=== PATIENT | female | born 1950 | race Two or more races ===

== ENCOUNTER 2024-11-30 06:47 | Day surgery (SDC) | payer MEDICARE, SELFPAY ==
--- NOTE | 2024-11-28 10:59 | EKG_ITS ---
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 : 1950 Requested By: Augustus Chan Order Number: [id number] Reading MD: Augustus Chan Measurements Intervals Gilbert Rate: 126 P: UT: QRS: -1 QRSD: 78 T: 0 QT: 124 QTc: 180 Interpretive Statements ATRIAL FIBRILLATION WITH RAPID VENTRICULAR RESPONSE LOW QRS VOLTAGE IN PRECORDIAL LEADS [QRS DEFLECTION < 1.0 mV IN CHEST LEADS] MINIMAL ST DEPRESSION [0.025+ mV ST DEPRESSION] ABNORMAL RHYTHM ECG Compared to ECG 07/23/2023 14:36:00 Low QRS voltage now present ST (T wave) deviation now present Left-axis deviation no longer present T-wave abnormality no longer present /store/S0/[id number].pdf
[2024-11-28 11:27] LABS: Partial Thromboplastin Time 26.1 Seconds (22.0-36.0); Prothrombin Time 10.9 Seconds (9.0-12.2)
[2024-11-28 11:34] LABS: Anion Gap 9 (7-16); BUN/Creatinine Ratio 16 Ratio (12-20); Blood Urea Nitrogen 18 mg/dL (9-23); Calcium 9.6 mg/dL (8.3-10.6); Carbon Dioxide 32.5 mMol/L (20.0-31.0); Chloride 98 mMol/L (98-107); Creatinine (Component) 1.1 mg/dL (0.6-1.3); Glucose 89 mg/dL (74-106); Osmolality,Calculated 278 (275-295); Potassium 3.8 mMol/L (3.4-5.1); Sodium 139 mMol/L (136-145); eGFR 52 See Note
[2024-11-28 11:55] LABS: Basophils # (Auto) 0.1 Thou/mm3 (0.0-0.2); Basophils % (Auto) 1 % (0-2.5); Eosinophils # (Auto) 0.6 Thou/mm3 (0.0-0.5); Eosinophils % (Auto) 5 % (0-10); Hematocrit 43.7 % (36.0-46.0); Hemoglobin 14.7 g/dL (12.0-16.0); Immature Granulocytes % (Auto) 0 % (0-0); Immature Granulocytes Auto 0.04 Thou/mm3 (0.00-0.00); Lymphocytes # (Auto) 3.9 Thou/mm3 (1.0-4.8); Lymphocytes % (Auto) 32 % (10-50); Mean Corpuscular HGB Conc 33.6 g/dl (31.0-37.0); Mean Corpuscular Volume 89 fL (80-100); Monocytes # (Auto) 1.4 Thou/mm3 (0.0-0.8); Monocytes % (Auto) 11 % (0-12); Neutrophils # (Auto) 6.3 Thou/mm3 (1.8-7.7); Neutrophils % (Auto) 51 % (37-80); Nucleated Red Blood Cell % 0 /100 WBC (0); Platelet Count 287 Thou/mm3 (140-440); RDW Standard Deviation 40.9 fL (36.4-46.3); White Blood Count 12.3 Thou/mm3 (3.6-11.0)
[2024-11-28 15:46] VITALS: BMI 36.3
[2024-11-30] VITALS (23 sets, daily range): BP systolic 87–179; BP diastolic 66–124; PULSE 70–130; RESP 13–24; TEMP 36.1–36.6; O2SAT 93–99; BMI 36.2
[2024-11-30] MEDS: DILTIAZEM INJ 5 MG/ML VIAL 5 ML 20 MG IV (08:04)
[2024-11-30] MEDS: FUROSEMIDE INJ 10 MG/ML 4ML VIAL 20 MG IVP (10:28)
[2024-11-30] MEDS: LABETALOL INJ 5 MG/ML VIAL 20 ML 20 MG IVP (10:48)
--- NOTE | 2024-11-30 11:44 | PC.NURSE ---
1015 patient is awake, alert, oriented x3, s/p LHC by Dr. Chan, TR band present to right wrist, small amount of dry blood noted, no active bleeding or hematoma noted. Patient has expiratory wheezing. Report received from Mykel JAMA, patient to recovery for 4 hours. Patient may resume eliquis tomorrow. May resume aspirin and start new medication plavix. 1028 New order received for lasix 20mg IVP, medication given. 1048 Blood pressure remains high, HR 120, labetalol 20mg given IVP. 1100 patient ate sandwitch and juice, no nausea or vomiting
--- NOTE | 2024-11-30 12:15 | PD.CARDCATH ---
Cardiac Cath Procedure Procedure Name Date of procedure: 11/30/2024 PROCEDURE PERFORMED: 1. Successful complex PCI performed of the mid LAD with 2.5 x 30 mm [place] stent and post dilated proximally with 3.0x15 mm NC balloon 2. Left heart cardiac catheterization including right, left coronary angiograms and left ventriculogram 2. Ultrasound-guided access of the right radial artery 3. Conscious sedation for 30 minutes SANDBLASTER STONE: Augustus Chan MD Procedure Narrative HISTORY AND INDICATIONS: 74-year-old female with a past medical history of paroxysmal atrial fibrillation, chronic systolic and diastolic congestive heart failure (EF 45% 2021, 50% 2023, 60-65% 2024), COPD, prediabetes, essential hypertension, obesity, osteoarthritis, asthma, neuropathy peripheral. Patient was initially seen in [facility] for shortness of breath, she followed up as outpatient and ischemic work up was started. NST showed areas of decreased uptake in the apex, apical anterior, apical inferior and apical lateral segments that improves with rest indicating stress induced ischemia. EF 63%. TID 1.33. Patient was brought in for an elective cardiac catheterization. All the risk benefits and alternatives of left heart cardiac attrition were explained in detail including the risk of bleeding, heart attack, stroke and in detail. Patient agreeable for the procedure and provided the consent. H&P updated. DESCRIPTION OF PROCEDURE: The patient was brought to the cardiac catheterization lab analysis the precautions were followed. Patient was given 1 Mg of Versed and 50 mcg of fentanyl for moderate conscious sedation. 2 mL of lidocaine was given in the right wrist. The right radial artery was accessed via the ultrasound guidance as well as micropuncture technique. A 6 Portuguese glide sheath was introduced. We then used a 6 Portuguese TIG 4 catheter to perform the left coronary angiogram as well as a left ventriculogram which showed the following findings. A JR 3.5 SH sidehole catheter was used for right coronary angiogram as well as performing the PCI of the mid LAD. 1. Right dominant circulation 2. Left main artery is a large artery without any Significant disease 2. LAD arises artery with severe 80% stenosis in a long segment of the mid segment. Small diagonals with 40% stenosis in diagonal 1. The rest without any significant disease. 3. LCx is a large size artery with moderate disease in the mid segment. OM1 and OM 2 are medium sized arteries without any significant disease. 4. RCA is large size artery with moderate 50% stenosis of the mid segment. 5. LVEF is normal at 60 to 65% with normal LVEDP. There was no significant transvalvular aortic gradient INTERVENTION: A 6 Portuguese JL 3.5 SH guide was used to engage the left coronary artery. Patient was given weight-based heparin and ACT was greater than 250 although the procedure. Run-through guidewire was used to cross the lesion in the mid LAD without any complications. We then use a second run-through wire as sentinel wire to adjust the position of the balloon or the stent of the long mid RCA lesion. A 2.5 x 20 mm semicomplaint balloon was used for predilatation and was predilated multiple times at 6, 8 and 10 and 12 maricel respectively. We then used 2.5 x 30 mm [place] stent and carefully positioned in the mid segment and multiple images were taken to make sure that mid segment was covered with couple of cells extending into the aorta. The [place] stent was deployed at 12 and 14 maricel for a total of 45 seconds and then post dilation was performed with a 3.0 x 15 mm noncompliant balloon at almost 20 maricel to flare up distal edge of the stent into the aorta. Excellent results achieved with LUIS A-3 flow and no other complications. Final angiographic pictures were taken and all interventional equipment was removed. ACC data: Preprocedure: mid LAD with 80%% stenosis with LUIS A-3 flow Post procedure: mid LAD with 0% residual stenosis with LUIS A-3 flow Patient was already on aspirin and plavix which were continued. A radial band was used to achieve the hemostasis of the right radial artery access. Patient will be monitored in the cardiac Oral Surgery Technician for the next 2 to 3 hours and will be discharged home later if hemodynamically stable. Complications: None Specimens: None Blood loss: Estimated 10 ML Summary/findings: 1. LHC showed severe 80% stenosis of mid LAD, moderate 50% stenosis of mid LCx and mid RCA, and 40% stenosis of Diagonal 1. Rest of the brances withouth significant disease. 2. LVEF was normal at 55 to 60% with normal LVEDP. No significant transvalvular aortic gradient noted. 3. Successful complex PCI performed of the mid LAD with 2.5 x 30 mm [place] stent and post dilated proximally with 3.0x15 mm NC balloon with excellent results and no complications. Recommendations: 1. Recommended dual antiplatelet therapy with aspirin 81 mg once daily lifetime and plavix 75 mg once daily for at least 1 year. Alreay on High intensity statin and beta-blockers. 2. Recommend aggressive risk factor modification 3. Patient recommended not to lift any weight more than 5 to 10 pounds for the next 7 days and follow-up with me in the office in 7 days. Augustus Chan MD Interventional Cardiology.
--- NOTE | 2024-11-30 15:52 | PC.NURSE ---
1305 patient ambulated to bathroom with assistance to void and also had bowel movement. 1310 report given to Horace JAMA 1356 patient is awake, alert, breathing unlabored, dressing to right wrist dry with no bleeding, patient able to tolerate lunch tray with no nausea or vomiting, TR band removed by Horace JAMA at 1310, report received from Horace JAMA. 1455 patient is awake, alert, breathing unlabored, dressing to right wrist dry with no bleeding or hematoma. Discharge instructions given to patient and family member Jovana, patient discharged home in wheelchair with all belongings. pt family stated they received message from pharmacy that plavix is ready and they will go burr picker prescription. pt voided 250ml total urine output via purewick device.
== END 2024-11-30 14:55 | disposition home or self-care (01) ==
PROVIDERS: PCP Internal Medicine; Referring Provider Internal Medicine Cardiovascular Disease; Visit Provider Internal Medicine Cardiovascular Disease
PROC: (CPT 93458; principal; 2024-11-30 08:30)
PROC: (CPT 93458; 2024-11-30 08:30)
DX: I25.118 Atherosclerotic heart disease of native coronary artery with other forms of angina pectoris (principal); J44.89 Other specified chronic obstructive pulmonary disease; I50.42 Chronic combined systolic (congestive) and diastolic (congestive) heart failure; I48.0 Paroxysmal atrial fibrillation; I11.0 Hypertensive heart disease with heart failure; E66.9 Obesity, unspecified; Z01.810 Encounter for preprocedural cardiovascular examination
CPT/HCPCS: 93458; C9600; 36415; 80048; 85025; 85347; 85610; 85730; 93005; 99152; 99153; A4649; C1725; C1769; C1874; C1887; C1894; J0171; J0461; J1643; J1938; J2250; J2310; J2371; J3010; J3490; Q9967; A9270; J1920